=== PATIENT | male | born 1930 | race Caucasian/White ===

== ENCOUNTER 2017-02-02 07:43 | Emergency (ER) | payer MEDICARE, OTHER ==
[~2017-02-02] VITALS: Ht 172.7 cm; Wt 80.0 kg
[~2017-02-02 07:43] MED LIST: ACET-2178 PO; ASPI-1035 PO; DOCU-138 PO; LISI-604 PO; LORA1TAB PO; MEMA10TA11 PO; MULT-1146 PO; QUET25TA PO
[2017-02-02] MEDS ORDERED: SODIUM CHLORIDE 0.9% 500 ML IV ONE (08:15)
[2017-02-02 08:18] LABS: BASOPHILS % 0.3 % (0.0-2.0); EOSINOPHILS % 2.1 % (0.0-5.0); HEMATOCRIT. 37.4 % (42.0-52.0); HEMOGLOBIN. 12.2 g/dL (14.0-18.0); MEAN CORPUSCULAR HEMOGLOBIN 29.9 pg (28.0-32.0); MEAN CORPUSCULAR HGB CONC 32.5 g/dL (31.0-37.0); MEAN PLATELET VOLUME 7.9 fl (7.4-10.4); NEUTROPHILS % 72.6 % (40.0-76.0); PLATELET 277 x1000/uL (130-400); RED BLOOD CELL COUNT 4.07 mill/uL (4.7-6.1); RED CELL DISTRIBUTION WIDTH 13.5 % (11.6-14.6); WHITE BLOOD COUNT 7.4 x1000/uL (4.5-11.0)
[2017-02-02 08:27] LABS: INR 1.1; PARTIAL THROMBOPLASTIN TIME 32.9 sec (24.0-34.0); PROTHROMBIN TIME 11.2 sec
[2017-02-02 08:34] LABS: ALANINE AMINOTRANSFERASE 23 IU/L (13-61); ALBUMIN 2.9 g/dL (3.4-5.0); ANION GAP 10; CALCIUM 8.8 mg/dL (8.5-10.1); CARBON DIOXIDE 27 mEq/L (21-32); CHLORIDE 108 mEq/L (98-107); INDEX HEMOLYSI 1 (1-3); INDEX ICTERIC 1 (1-4); INDEX LIPEMIC 1 (1-3); UREA NITROGEN BLOOD 29 mg/dL (7-21); eGFR 57 mL/min (>60)
[2017-02-02 08:35] LABS: TROPONIN I < 0.02 ng/mL (0.00-0.04)
[2017-02-02 10:28] LABS: CLARITY URINE CLEAR (CLEAR); COLOR URINE YELLOW (YELLOW); GLUCOSE URINE NEGATIVE (NEGATIVE); KETONES URINE NEGATIVE (NEGATIVE); LEUKOCYTE ESTERASE URINE NEGATIVE (NEGATIVE); NITRITE URINE NEGATIVE (NEGATIVE); OCCULT BLOOD URINE NEGATIVE (NEGATIVE); PH URINE 5.5 (4.5-8.0); PROTEIN URINE NEGATIVE (NEGATIVE); SPECIFIC GRAVITY URINE 1.012 (1.005-1.030); UROBILINOGEN URINE 0.2 E.U./dL (0.2-1.0)
[2017-02-02 15:35] VITALS: BP 153/95
== END 2017-02-02 15:51 ==
LOC: ER 08:07
DX: R55 Syncope and collapse (principal); E86.0 Dehydration; F03.90 Unspecified dementia, unspecified severity, without behavioral disturbance, psychotic disturbance, mood disturbance, and anxiety; I13.10 Hypertensive heart and chronic kidney disease without heart failure, with stage 1 through stage 4 chronic kidney disease, or unspecified chronic kidney disease; N18.9 Chronic kidney disease, unspecified; F20.9 Schizophrenia, unspecified; Z79.82 Long term (current) use of aspirin; Z79.1 Long term (current) use of non-steroidal anti-inflammatories (NSAID); Z79.899 Other long term (current) drug therapy; Z95.0 Presence of cardiac pacemaker
CPT/HCPCS: 36415; 71010; 80053; 81003; 82962; 83605; 84484; 85025; 85610; 85730; 87086; 93005; 96360; 99285; J7040

== ENCOUNTER 2017-02-09 09:20 | Observation (INO) | payer MEDICARE, OTHER ==
[~2017-02-09] VITALS: Ht 172.7 cm; Wt 86.6 kg
[2017-02-09] MEDS ORDERED: SODIUM CHLORIDE 0.9% 1,000 ML IV ONE (09:32)
[2017-02-09 10:07] LABS: AMMONIA < 10 uMol/L (<32); INDEX HEMOLYSI 1 (1-3)
[2017-02-09 10:09] LABS: BASOPHILS % 0.6 % (0.0-2.0); EOSINOPHILS % 1.2 % (0.0-5.0); HEMATOCRIT. 35.7 % (42.0-52.0); HEMOGLOBIN. 11.6 g/dL (14.0-18.0); LYMPHOCYTES % 16.5 % (20.0-50.0); MEAN CORPUSCULAR HEMOGLOBIN 29.8 pg (28.0-32.0); MEAN CORPUSCULAR HGB CONC 32.4 g/dL (31.0-37.0); MEAN CORPUSCULAR VOLUME 91.9 fL (80.0-94.0); MEAN PLATELET VOLUME 8.5 fl (7.4-10.4); MONOCYTES % 8.9 % (2.0-8.0); NEUTROPHILS % 72.8 % (40.0-76.0); PLATELET 201 x1000/uL (130-400); RED BLOOD CELL COUNT 3.88 mill/uL (4.7-6.1); RED CELL DISTRIBUTION WIDTH 13.8 % (11.6-14.6); WHITE BLOOD COUNT 6.6 x1000/uL (4.5-11.0)
[2017-02-09 10:11] LABS: ALANINE AMINOTRANSFERASE 23 IU/L (13-61); ALBUMIN 2.8 g/dL (3.4-5.0); ANION GAP 12; CALCIUM 8.7 mg/dL (8.5-10.1); CARBON DIOXIDE 26 mEq/L (21-32); CHLORIDE 109 mEq/L (98-107); ETHANOL BLOOD < 10 mg/dL; INDEX HEMOLYSI 1 (1-3); INDEX ICTERIC 1 (1-4); INDEX LIPEMIC 1 (1-3); TROPONIN I < 0.02 ng/mL (0.00-0.04); UREA NITROGEN BLOOD 29 mg/dL (7-21); eGFR 52 mL/min (>60)
[2017-02-09 10:19] LABS: LACTIC ACID 2.2 mmol/L (0.4-2.0)
[2017-02-09 10:41] LABS: CLARITY URINE CLEAR (CLEAR); COLOR URINE YELLOW (YELLOW); GLUCOSE URINE NEGATIVE (NEGATIVE); KETONES URINE NEGATIVE (NEGATIVE); LEUKOCYTE ESTERASE URINE NEGATIVE (NEGATIVE); NITRITE URINE NEGATIVE (NEGATIVE); OCCULT BLOOD URINE NEGATIVE (NEGATIVE); PH URINE 5.5 (4.5-8.0); PROTEIN URINE NEGATIVE (NEGATIVE); SPECIFIC GRAVITY URINE 1.009 (1.005-1.030); UROBILINOGEN URINE 0.2 E.U./dL (0.2-1.0)
[2017-02-09 11:06] LABS: *AMPHETAMINES SCREEN URINE NEGATIVE (NEGATIVE); *BARBITURATES SCREEN URINE NEGATIVE (NEGATIVE); *BENZODIAZEPINES SCREEN URINE NEGATIVE (NEGATIVE); *COCAINE SCREEN URINE NEGATIVE (NEGATIVE); CANNABINOID URINE SCREEN NEGATIVE (NEGATIVE); ECSTASY MDMA SCREEN URINE NEGATIVE (NEGATIVE); METHADONE URINE SCREEN NEGATIVE (NEGATIVE); OPIATES URINE SCREEN NEGATIVE (NEGATIVE); PHENCYCLIDINE URINE SCREEN NEGATIVE (NEGATIVE)
[2017-02-09 16:00] VITALS: BP_SYST 131; BP_SYST 146; BP_DIAS 82; BP_DIAS 92
[2017-02-09] MEDS ORDERED: PANTOPRAZOLE 40MG DR TABLET PO SCH (18:15)
[2017-02-09 20:00] VITALS: BP 103/69
[2017-02-09] MEDS ORDERED: LEVOFLOXACIN 500MG PREMIX 100 ML IV NR (20:00)
[2017-02-09] MEDS: ASPIRIN 81MG TABLET PO SCH (20:31)
[2017-02-09] MEDS: FUROSEMIDE 40MG/4ML VIAL IVP SCH (20:31)
[2017-02-09] MEDS: NYSTATIN POWDER 15GM TOP SCH (21:54)
[2017-02-10 04:00] VITALS: BP 110/73
[2017-02-10 08:00] VITALS: BP 122/72
[2017-02-10 08:17] LABS: TROPONIN I 0.04 ng/mL (0.00-0.04)
[2017-02-10] MEDS: FUROSEMIDE 40MG/4ML VIAL IVP SCH (08:56)
[2017-02-10] MEDS: ASPIRIN 81MG TABLET PO SCH (08:56)
[2017-02-10] MEDS: ENOXAPARIN 40MG/0.4ML SYR SUBCUT SCH (08:56)
[2017-02-10] MEDS: NYSTATIN POWDER 15GM TOP SCH ×3 (08:56→17:09)
[2017-02-10] MEDS: LEVOTHYROXINE SODIUM 25MCG TABLET PO SCH (09:49)
[2017-02-10 09:58] LABS: BASOPHILS % 0.5 % (0.0-2.0); EOSINOPHILS % 2.2 % (0.0-5.0); HEMATOCRIT. 33.4 % (42.0-52.0); HEMOGLOBIN. 11.2 g/dL (14.0-18.0); LYMPHOCYTES % 15.2 % (20.0-50.0); MEAN CORPUSCULAR HEMOGLOBIN 30.4 pg (28.0-32.0); MEAN CORPUSCULAR HGB CONC 33.5 g/dL (31.0-37.0); MEAN CORPUSCULAR VOLUME 90.9 fL (80.0-94.0); MEAN PLATELET VOLUME 8.9 fl (7.4-10.4); MONOCYTES % 13.6 % (2.0-8.0); NEUTROPHILS % 68.5 % (40.0-76.0); PLATELET 181 x1000/uL (130-400); RED BLOOD CELL COUNT 3.67 mill/uL (4.7-6.1); RED CELL DISTRIBUTION WIDTH 13.7 % (11.6-14.6); WHITE BLOOD COUNT 5.9 x1000/uL (4.5-11.0)
[2017-02-10 10:10] LABS: ALANINE AMINOTRANSFERASE 30 IU/L (13-61); ALBUMIN 2.8 g/dL (3.4-5.0); ANION GAP 13; CALCIUM 8.5 mg/dL (8.5-10.1); CARBON DIOXIDE 25 mEq/L (21-32); CHLORIDE 108 mEq/L (98-107); INDEX HEMOLYSI 1 (1-3); INDEX ICTERIC 1 (1-4); INDEX LIPEMIC 1 (1-3); MAGNESIUM 2.3 mg/dL (1.8-2.4); UREA NITROGEN BLOOD 26 mg/dL (7-21); eGFR > 60 mL/min (>60)
[2017-02-10 12:00] VITALS: BP 105/64
[2017-02-10 16:00] VITALS: BP 112/80
[2017-02-10 20:00] VITALS: BP 116/69
[2017-02-10] MEDS: LEVOFLOXACIN 250MG PREMIX 50 ML IV SCH (21:05)
[2017-02-10] MEDS: FAMOTIDINE 20MG TABLET PO SCH (21:14)
[2017-02-11] VITALS: BP 114/70
[2017-02-11 04:00] VITALS: BP 113/71
[2017-02-11] MEDS: LEVOTHYROXINE SODIUM 25MCG TABLET PO SCH (07:01)
[2017-02-11 08:00] VITALS: BP 110/70
[2017-02-11] MEDS: FUROSEMIDE 40MG/4ML VIAL IVP SCH (08:19)
[2017-02-11] MEDS: FAMOTIDINE 20MG TABLET PO SCH ×2 (08:19→19:56)
[2017-02-11] MEDS: NYSTATIN POWDER 15GM TOP SCH ×3 (08:20→17:00)
[2017-02-11] MEDS: ASPIRIN 81MG TABLET PO SCH (08:20)
[2017-02-11] MEDS: ENOXAPARIN 40MG/0.4ML SYR SUBCUT SCH (08:21)
[2017-02-11 12:00] VITALS: BP 98/68
[2017-02-11 16:00] VITALS: BP 123/77
[2017-02-11] MEDS: LEVOFLOXACIN 250MG PREMIX 50 ML IV SCH (19:57)
[2017-02-11 20:52] VITALS: BP 158/68
[2017-02-12 01:01] VITALS: BP 116/75
[2017-02-12 04:00] VITALS: BP 117/81
[2017-02-12] MEDS: LEVOTHYROXINE SODIUM 25MCG TABLET PO SCH (06:13)
[2017-02-12 08:03] VITALS: BP 111/76
[2017-02-12] MEDS: ASPIRIN 81MG TABLET PO SCH (08:20)
[2017-02-12] MEDS: FAMOTIDINE 20MG TABLET PO SCH (08:20)
[2017-02-12] MEDS: FUROSEMIDE 40MG/4ML VIAL IVP SCH (08:20)
[2017-02-12] MEDS: NYSTATIN POWDER 15GM TOP SCH ×3 (08:20→17:12)
[2017-02-12] MEDS: ENOXAPARIN 40MG/0.4ML SYR SUBCUT SCH (08:21)
[2017-02-12 12:00] VITALS: BP 99/61
== END 2017-02-12 18:30 | disposition home or self-care (01) ==
LOC: ER 09:34 → INTOOBSV 13:44 → 6WST 13:44
PROVIDERS: ADMIT Internal Medicine; ATTEND Internal Medicine
DX: R55 Syncope and collapse (principal); R40.2430 Glasgow coma scale score 3-8, unspecified time; I51.7 Cardiomegaly; I11.9 Hypertensive heart disease without heart failure; F20.9 Schizophrenia, unspecified; F03.90 Unspecified dementia, unspecified severity, without behavioral disturbance, psychotic disturbance, mood disturbance, and anxiety; E86.0 Dehydration; I25.10 Atherosclerotic heart disease of native coronary artery without angina pectoris; D64.9 Anemia, unspecified
CPT/HCPCS: 36415; 71010; 78582; 80053; 80061; 80305; 81003; 82140; 83605; 83735; 84443; 84484; 85025; 93306; 93880; 93970; 96361; 96366; 96372; 96375; 96376; 99285; A9540; A9558; G0378; G0482; J1650; J1940; J1956; J7050; J7030

== ENCOUNTER 2017-05-10 13:46 | Observation (INO) | payer MEDICARE, OTHER ==
[~2017-05-10] VITALS: Ht 172.7 cm; Wt 79.8 kg
[~2017-05-10 13:46] MED LIST changes: -ASPI-1035 PO; +ASPI-1159 PO; -MEMA10TA11 PO; +MEMA10TA2 PO
[2017-05-10] MEDS ORDERED: SODIUM CHLORIDE 0.9% 10ML VIAL ONE (14:47)
[2017-05-10] MEDS ORDERED: IOHEXOL-350 100 ML BOTTLE ONE (14:47)
[2017-05-10 14:48] LABS: BASOPHILS % 0.6 % (0.0-2.0); EOSINOPHILS % 5.4 % (0.0-5.0); HEMATOCRIT. 38.1 % (42.0-52.0); HEMOGLOBIN. 12.5 g/dL (14.0-18.0); LYMPHOCYTES % 24.9 % (20.0-50.0); MEAN CORPUSCULAR HEMOGLOBIN 30.2 pg (28.0-32.0); MEAN CORPUSCULAR VOLUME 92.1 fL (80.0-94.0); MEAN PLATELET VOLUME 8.5 fl (7.4-10.4); MONOCYTES % 13.5 % (2.0-8.0); NEUTROPHILS % 55.6 % (40.0-76.0); PLATELET 184 x1000/uL (130-400); RED BLOOD CELL COUNT 4.14 mill/uL (4.7-6.1)
[2017-05-10 14:56] LABS: CHLORIDE 107 mEq/L (98-107)
[2017-05-10 14:57] LABS: PARTIAL THROMBOPLASTIN TIME 27.9 sec (23.4-31.0); PROTHROMBIN TIME 10.9 sec (9.4-11.6)
[2017-05-10 15:06] LABS: CARBON DIOXIDE 27 mEq/L (21-32); TROPONIN I < 0.02 ng/mL (0.00-0.04)
[2017-05-10 16:59] LABS: CLARITY URINE CLEAR (CLEAR); COLOR URINE YELLOW (YELLOW); GLUCOSE URINE NEGATIVE (NEGATIVE); KETONES URINE NEGATIVE (NEGATIVE); LEUKOCYTE ESTERASE URINE NEGATIVE (NEGATIVE); NITRITE URINE NEGATIVE (NEGATIVE); OCCULT BLOOD URINE NEGATIVE (NEGATIVE); PH URINE 5.5 (4.5-8.0); PROTEIN URINE NEGATIVE (NEGATIVE); UROBILINOGEN URINE 0.2 E.U./dL (0.2-1.0)
[2017-05-10] MEDS ORDERED: LEVOFLOXACIN 750MG PREMIX 150 ML IV SCH (19:15)
[2017-05-10] MEDS ORDERED: PIPERACILLIN/TAZ 3.375G PREMIX 50 ML IV ONE (19:15)
[2017-05-11] VITALS (8 sets, daily range): BP systolic 101–134; BP diastolic 64–76
[2017-05-11] MEDS ORDERED: ACETAMINOPHEN 325MG TABLET PO PRN (03:30)
[2017-05-11] MEDS ORDERED: SODIUM CHLORIDE 0.9% INJ 3ML FLUSH IVF SCH (06:00)
[2017-05-11 06:35] LABS: BASOPHILS % 0.6 % (0.0-2.0); EOSINOPHILS % 5.1 % (0.0-5.0); HEMATOCRIT. 37.8 % (42.0-52.0); HEMOGLOBIN. 12.6 g/dL (14.0-18.0); LYMPHOCYTES % 16.3 % (20.0-50.0); MEAN CORPUSCULAR HEMOGLOBIN 30.6 pg (28.0-32.0); MEAN PLATELET VOLUME 8.9 fl (7.4-10.4); MONOCYTES % 13.6 % (2.0-8.0); NEUTROPHILS % 64.4 % (40.0-76.0); PLATELET 182 x1000/uL (130-400)
[2017-05-11 08:02] LABS: CHLORIDE 107 mEq/L (98-107)
[2017-05-11 08:15] LABS: CARBON DIOXIDE 25 mEq/L (21-32)
[2017-05-11] MEDS: DOCUSATE SODIUM 100MG CAPSULE PO SCH ×2 (08:45→16:10)
[2017-05-11] MEDS ORDERED: ASPIRIN 81MG EC TABLET PO SCH (09:00)
[2017-05-11] MEDS ORDERED: FAMOTIDINE 20MG TABLET PO SCH (09:00)
[2017-05-11] MEDS ORDERED: LISINOPRIL 20MG TABLET PO SCH (09:00)
[2017-05-11] MEDS ORDERED: ENOXAPARIN 40MG/0.4ML SYR SUBCUT SCH (09:00)
[2017-05-11] MEDS ORDERED: LEVOFLOXACIN 500MG PREMIX 100 ML IV SCH (14:00)
== END 2017-05-11 20:38 ==
LOC: ER 14:21 → EDBEDREQ 19:09 → 6EST 19:26 → INTOOBSV 19:26 → EDBEDREQ 19:38 → ENRESERV 21:34
PROVIDERS: ADMIT Internal Medicine; ATTEND Internal Medicine
DX: J18.9 Pneumonia, unspecified organism (principal); I10 Essential (primary) hypertension; G93.40 Encephalopathy, unspecified; F03.90 Unspecified dementia, unspecified severity, without behavioral disturbance, psychotic disturbance, mood disturbance, and anxiety; Y95 Nosocomial condition
CPT/HCPCS: 36415; 71010; 71275; 80048; 80053; 81003; 83690; 84484; 85025; 85610; 85730; 87040; 93005; 96365; 96366; 96367; 96372; 99285; A4216; A6261; C1893; G0378; J1650; J1956; J2543; Q9967

== ENCOUNTER 2017-07-30 07:31 | Inpatient (IN) | payer MEDICARE, OTHER ==
[~2017-07-30] VITALS: Ht 188 cm; Wt 90.7 kg
[2017-07-30] MEDS ORDERED: SODIUM CHLORIDE 0.9% 1,000 ML IV ONE (07:45)
[2017-07-30 08:07] LABS: BASOPHILS % 0.5 % (0.0-2.0); EOSINOPHILS % 4.5 % (0.0-5.0); HEMATOCRIT. 37.3 % (42.0-52.0); HEMOGLOBIN. 12.5 g/dL (14.0-18.0); LYMPHOCYTES % 18.6 % (20.0-50.0); MEAN CORPUSCULAR VOLUME 92.8 fL (80.0-94.0); MEAN PLATELET VOLUME 8.3 fl (7.4-10.4); MONOCYTES % 11.8 % (2.0-8.0); NEUTROPHILS % 64.6 % (40.0-76.0); PLATELET 186 x1000/uL (130-400); RED BLOOD CELL COUNT 4.02 mill/uL (4.7-6.1); RED CELL DISTRIBUTION WIDTH 13.8 % (11.6-14.6)
[2017-07-30 08:16] LABS: INR 1.1; PROTHROMBIN TIME 10.9 sec (9.4-11.6)
[2017-07-30 08:25] LABS: CARBON DIOXIDE 25 mEq/L (21-32); CHLORIDE 107 mEq/L (98-107); ETHANOL BLOOD < 10 mg/dL; TROPONIN I < 0.02 ng/mL (0.00-0.04)
[2017-07-30 10:07] LABS: CLARITY URINE CLEAR (CLEAR); COLOR URINE YELLOW (YELLOW); GLUCOSE URINE NEGATIVE (NEGATIVE); KETONES URINE NEGATIVE (NEGATIVE); LEUKOCYTE ESTERASE URINE NEGATIVE (NEGATIVE); NITRITE URINE NEGATIVE (NEGATIVE); OCCULT BLOOD URINE NEGATIVE (NEGATIVE); PROTEIN URINE NEGATIVE (NEGATIVE); SPECIFIC GRAVITY URINE 1.018 (1.005-1.030); UROBILINOGEN URINE 0.2 E.U./dL (0.2-1.0)
[2017-07-30 10:52] LABS: *AMPHETAMINES SCREEN URINE NEGATIVE (NEGATIVE); *BARBITURATES SCREEN URINE NEGATIVE (NEGATIVE); *BENZODIAZEPINES SCREEN URINE NEGATIVE (NEGATIVE); *COCAINE SCREEN URINE NEGATIVE (NEGATIVE); CANNABINOID URINE SCREEN NEGATIVE (NEGATIVE); METHADONE URINE SCREEN NEGATIVE (NEGATIVE); OPIATES URINE SCREEN NEGATIVE (NEGATIVE); PHENCYCLIDINE URINE SCREEN NEGATIVE (NEGATIVE)
[2017-07-30 11:00] VITALS: BP 133/86
[2017-07-30 11:30] VITALS: BP 133/86
[2017-07-30] MEDS ORDERED: GUAIFENESIN 200MG/10ML SUGAR FREE UDC PO PRN (14:00)
[2017-07-30] MEDS ORDERED: MAGNESIUM/ALUMINUM HYDROXIDE/SIMETHICONE 30ML UDC PO PRN (14:00)
[2017-07-30] MEDS ORDERED: DOCUSATE SODIUM 100MG CAPSULE PO PRN (14:00)
[2017-07-30] MEDS ORDERED: ACETAMINOPHEN 325MG TABLET PO PRN (14:00)
[2017-07-30] MEDS ORDERED: CLONIDINE 0.1MG TABLET PO PRN (14:00)
[2017-07-30] MEDS ORDERED: ONDANSETRON HCL 4MG/2ML VIAL IV PRN (14:00)
[2017-07-30 15:15] VITALS: BP 140/80
[2017-07-30 17:29] LABS: CREATINE KINASE 130 IU/L (39-308); CREATINE KINASE MB FRACTION 3.1 ng/mL (0.5-3.6); TROPONIN I < 0.02 ng/mL (0.00-0.04)
[2017-07-30] MEDS: ENOXAPARIN 40MG/0.4ML SYR SUBCUT SCH (18:12)
[2017-07-30] MEDS: SODIUM CHLORIDE 0.9% 1,000 ML IV SCH (18:13)
[2017-07-30 20:00] VITALS: BP 96/47
[2017-07-30 23:39] LABS: CREATINE KINASE 116 IU/L (39-308); CREATINE KINASE MB FRACTION 2.4 ng/mL (0.5-3.6); TROPONIN I < 0.02 ng/mL (0.00-0.04)
[2017-07-31 00:40] VITALS: BP 98/46
[2017-07-31] MEDS: SODIUM CHLORIDE 0.9% 1,000 ML IV SCH ×2 (03:35→16:55)
[2017-07-31 04:00] VITALS: BP 126/67
[2017-07-31 06:29] LABS: BASOPHILS % 0.5 % (0.0-2.0); EOSINOPHILS % 4.8 % (0.0-5.0); HEMATOCRIT. 35.7 % (42.0-52.0); HEMOGLOBIN. 11.9 g/dL (14.0-18.0); LYMPHOCYTES % 19.4 % (20.0-50.0); MEAN CORPUSCULAR HEMOGLOBIN 30.9 pg (28.0-32.0); MEAN CORPUSCULAR VOLUME 92.7 fL (80.0-94.0); MEAN PLATELET VOLUME 8.4 fl (7.4-10.4); MONOCYTES % 12.6 % (2.0-8.0); NEUTROPHILS % 62.7 % (40.0-76.0); PLATELET 161 x1000/uL (130-400); RED BLOOD CELL COUNT 3.85 mill/uL (4.7-6.1); RED CELL DISTRIBUTION WIDTH 13.6 % (11.6-14.6)
[2017-07-31 07:56] LABS: CARBON DIOXIDE 24 mEq/L (21-32); CHLORIDE 112 mEq/L (98-107); HDL CHOLESTEROL 47 mg/dL (40-59); LDL CHOLESTEROL 73 mg/dL (5-100)
[2017-07-31 08:00] VITALS: BP 123/69
[2017-07-31] MEDS ORDERED: MULTIVITAMINS,THER W-MINERALS TABLET PO SCH (09:00)
[2017-07-31] MEDS ORDERED: ASPIRIN 81MG EC TABLET PO SCH (09:00)
[2017-07-31] MEDS: ENOXAPARIN 40MG/0.4ML SYR SUBCUT SCH (09:46)
[2017-07-31 12:00] VITALS: BP 148/75
[2017-07-31] MEDS ORDERED: MICONAZOLE NITRATE 2% OINT 71GM TOP SCH (12:30)
[2017-07-31 15:30] VITALS: BP 152/78
[2017-07-31 20:05] VITALS: BP 152/78
== END 2017-07-31 20:35 | DRG 69 ==
LOC: ER 07:34 → 6WST 09:09 → EDBEDREQ 09:12 → EDBEDREQSVC 09:12 → ENRESERV 10:26
PROVIDERS: ADMIT Internal Medicine; ATTEND Internal Medicine
DX: G45.9 Transient cerebral ischemic attack, unspecified (principal); N17.9 Acute kidney failure, unspecified; F03.90 Unspecified dementia, unspecified severity, without behavioral disturbance, psychotic disturbance, mood disturbance, and anxiety; I11.9 Hypertensive heart disease without heart failure; I10 Essential (primary) hypertension; H91.90 Unspecified hearing loss, unspecified ear; Z95.0 Presence of cardiac pacemaker; Z79.899 Other long term (current) drug therapy; Z79.82 Long term (current) use of aspirin
CPT/HCPCS: 36415; 70450; 71010; 80053; 80061; 80305; 81003; 82550; 82553; 82962; 83690; 83880; 84484; 85025; 85610; 93005; 93970; 96360; 99285; G0482; J1650; J7030

== ENCOUNTER 2017-09-15 11:46 | Emergency (ER) | payer MEDICARE, OTHER ==
[~2017-09-15] VITALS: Ht 172.7 cm; Wt 75.0 kg
[2017-09-15 14:19] LABS: CARBAMAZEPINE 1.1 ug/mL (4-12); VALPROIC ACID < 3.0 ug/mL (50-100)
[2017-09-15 14:51] LABS: BASOPHILS % 0.3 % (0.0-2.0); EOSINOPHILS % 1.7 % (0.0-5.0); HEMATOCRIT. 38.3 % (42.0-52.0); HEMOGLOBIN. 12.5 g/dL (14.0-18.0); LYMPHOCYTES % 8.1 % (20.0-50.0); MEAN CORPUSCULAR HEMOGLOBIN 30.5 pg (28.0-32.0); MEAN CORPUSCULAR VOLUME 93.8 fL (80.0-94.0); MEAN PLATELET VOLUME 8.5 fl (7.4-10.4); MONOCYTES % 10.6 % (2.0-8.0); NEUTROPHILS % 79.3 % (40.0-76.0); PLATELET 220 x1000/uL (130-400); RED BLOOD CELL COUNT 4.09 mill/uL (4.7-6.1); RED CELL DISTRIBUTION WIDTH 13.6 % (11.6-14.6)
[2017-09-16 02:50] VITALS: BP 109/74
== END 2017-09-16 03:03 | disposition home or self-care (01) ==
LOC: ER 11:48
DX: G40.909 Epilepsy, unspecified, not intractable, without status epilepticus (principal); F03.90 Unspecified dementia, unspecified severity, without behavioral disturbance, psychotic disturbance, mood disturbance, and anxiety; I13.10 Hypertensive heart and chronic kidney disease without heart failure, with stage 1 through stage 4 chronic kidney disease, or unspecified chronic kidney disease; N18.9 Chronic kidney disease, unspecified; Z79.82 Long term (current) use of aspirin
CPT/HCPCS: 36415; 80048; 80156; 80165; 80185; 85025; 99284

== ENCOUNTER 2017-11-07 17:28 | Inpatient (IN) | payer MEDICARE, OTHER ==
[~2017-11-07] VITALS: Ht 167.6 cm; Wt 75.3 kg
[2017-11-07 20:26] LABS: INR 1.1; PROTHROMBIN TIME 11.9 sec (9.4-11.6)
[2017-11-07 20:31] LABS: HEMOGLOBIN. 16.2 g/dL (14.0-18.0); MEAN CORPUSCULAR HEMOGLOBIN 30.3 pg (28.0-32.0); MEAN CORPUSCULAR VOLUME 97.3 fL (80.0-94.0); MEAN PLATELET VOLUME 12.8 fl (7.4-10.4); PLATELET 165 x1000/uL (130-400); RED BLOOD CELL COUNT 5.35 mill/uL (4.7-6.1); RED CELL DISTRIBUTION WIDTH 14.6 % (11.6-14.6)
[2017-11-07 20:36] LABS: CHLORIDE 131 mEq/L (98-107)
[2017-11-07 20:47] LABS: PLATELET ESTIMATE NORMAL
[2017-11-07] MEDS ORDERED: SODIUM CHLORIDE 0.9% 1,000 ML IV ONE (21:00)
[2017-11-07] MEDS ORDERED: PIPERACILLIN/TAZ 3.375G PREMIX 50 ML IV ONE (21:15)
[2017-11-07] MEDS ORDERED: VANCOMYCIN 1 G PREMIX 200 ML IV ONE (21:15)
[2017-11-08] VITALS (45 sets, daily range): BP systolic 67–141; BP diastolic 33–85
[2017-11-08] MEDS ORDERED: LEVOFLOXACIN 500MG PREMIX 100 ML IV SCH ×2 (01:30→03:00)
[2017-11-08] MEDS ORDERED: ACETAMINOPHEN 650MG/20.3ML UDC GT PRN (01:30)
[2017-11-08] MEDS: DEXT 5%/0.45% NACL 1000ML 1,000 ML IV SCH ×2 (02:39→13:53)
[2017-11-08 03:44] LABS: CLARITY URINE CLEAR (CLEAR); COLOR URINE YELLOW (YELLOW); KETONES URINE NEGATIVE (NEGATIVE); LEUKOCYTE ESTERASE URINE NEGATIVE (NEGATIVE); NITRITE URINE NEGATIVE (NEGATIVE); OCCULT BLOOD URINE NEGATIVE (NEGATIVE); PROTEIN URINE NEGATIVE (NEGATIVE); SPECIFIC GRAVITY URINE 1.023 (1.005-1.030); UROBILINOGEN URINE 0.2 E.U./dL (0.2-1.0)
[2017-11-08 05:35] LABS: HEMATOCRIT. 50.8 % (42.0-52.0); HEMOGLOBIN. 15.3 g/dL (14.0-18.0); MEAN CORPUSCULAR VOLUME 99.7 fL (80.0-94.0); MEAN PLATELET VOLUME 12.6 fl (7.4-10.4); PLATELET 144 x1000/uL (130-400)
[2017-11-08 06:14] LABS: CHLORIDE 131 mEq/L (98-107)
[2017-11-08] MEDS: METRONIDAZOLE 500MG TABLET GT SCH ×2 (06:56→15:43)
[2017-11-08] MEDS: PIPERACILLIN/TAZ 2.25G PREMIX 50 ML IV SCH ×3 (06:56→22:00)
[2017-11-08] MEDS: PANTOPRAZOLE SODIUM 40 MG/VIAL IV SCH (09:16)
[2017-11-08] MEDS: ENOXAPARIN 30MG/0.3ML SYR SUBCUT SCH (09:18)
[2017-11-08 10:21] LABS: PLATELET ESTIMATE NORMAL
[2017-11-08] MEDS: BLOOD SUGAR DIAGNOSTIC STRIP TEST SCH ×2 (11:13→21:18)
[2017-11-08] MEDS ORDERED: DEXTROSE 50% WATER 50ML SYRINGE IV PRN (11:30)
[2017-11-08] MEDS: INSULIN LISPRO 100 UNITS/ML SUBCUT SCH ×2 (11:37→21:00)
[2017-11-08] MEDS ORDERED: DEXTROSE 5% WATER 1,000 ML IV SCH (21:15)
[2017-11-09] VITALS: BP 97/52
[2017-11-09] MEDS: LEVOFLOXACIN 250MG PREMIX 50 ML IV SCH (03:00)
[2017-11-09 04:00] VITALS: BP 90/57
[2017-11-09] MEDS: PIPERACILLIN/TAZ 2.25G PREMIX 50 ML IV SCH ×3 (06:00→21:10)
[2017-11-09] MEDS: METRONIDAZOLE 500MG TABLET GT SCH ×3 (06:44→21:10)
[2017-11-09] MEDS: BLOOD SUGAR DIAGNOSTIC STRIP TEST SCH ×4 (06:48→21:09)
[2017-11-09] MEDS: INSULIN LISPRO 100 UNITS/ML SUBCUT SCH ×4 (07:09→21:09)
[2017-11-09 08:00] VITALS: BP 95/59
[2017-11-09] MEDS: PANTOPRAZOLE SODIUM 40 MG/VIAL IV SCH (08:38)
[2017-11-09] MEDS: ENOXAPARIN 30MG/0.3ML SYR SUBCUT SCH (08:38)
[2017-11-09 08:39] LABS: HEMATOCRIT. 47.2 % (42.0-52.0); HEMOGLOBIN. 14.2 g/dL (14.0-18.0); MEAN CORPUSCULAR HEMOGLOBIN 29.8 pg (28.0-32.0); MEAN CORPUSCULAR VOLUME 98.9 fL (80.0-94.0); MEAN PLATELET VOLUME 13.1 fl (7.4-10.4); PLATELET 95 x1000/uL (130-400); RED BLOOD CELL COUNT 4.77 mill/uL (4.7-6.1); RED CELL DISTRIBUTION WIDTH 14.2 % (11.6-14.6)
[2017-11-09 12:00] VITALS: BP 95/70
[2017-11-09 14:10] LABS: PLATELET ESTIMATE DECREASED
[2017-11-09] MEDS ORDERED: DESMOPRESSIN ACETATE 4MCG/ML AMP SUBCUT SCH ×2 (15:27→15:30)
[2017-11-09 16:00] VITALS: BP 103/68
[2017-11-09] MEDS: DESMOPRESSIN ACETATE 4MCG/ML AMP SUBCUT SCH ×2 (16:52→23:56)
[2017-11-09] MEDS: DEXT 5%/0.45% NACL 1000ML 1,000 ML IV SCH ×2 (16:52→23:57)
[2017-11-09 20:00] VITALS: BP 97/59
[2017-11-09] MEDS ORDERED: DESMOPRESSIN ACETATE 0.1MG TABLET PO SCH (21:00)
[2017-11-10] VITALS: BP 86/59
[2017-11-10 04:00] VITALS: BP 101/59
[2017-11-10] MEDS: LEVOFLOXACIN 250MG PREMIX 50 ML IV SCH (04:00)
[2017-11-10] MEDS: METRONIDAZOLE 500MG TABLET GT SCH ×3 (06:33→21:45)
[2017-11-10] MEDS: PIPERACILLIN/TAZ 2.25G PREMIX 50 ML IV SCH ×3 (06:33→21:45)
[2017-11-10] MEDS: BLOOD SUGAR DIAGNOSTIC STRIP TEST SCH ×4 (06:41→21:45)
[2017-11-10 07:07] LABS: BASOPHILS % 0.2 % (0.0-2.0); EOSINOPHILS % 0.8 % (0.0-5.0); HEMATOCRIT. 42.1 % (42.0-52.0); HEMOGLOBIN. 12.8 g/dL (14.0-18.0); LYMPHOCYTES % 7.3 % (20.0-50.0); MEAN CORPUSCULAR HEMOGLOBIN 30.1 pg (28.0-32.0); MEAN CORPUSCULAR VOLUME 98.8 fL (80.0-94.0); MEAN PLATELET VOLUME 13.1 fl (7.4-10.4); MONOCYTES % 5.9 % (2.0-8.0); NEUTROPHILS % 85.8 % (40.0-76.0); PLATELET 77 x1000/uL (130-400); RED BLOOD CELL COUNT 4.26 mill/uL (4.7-6.1); RED CELL DISTRIBUTION WIDTH 14.3 % (11.6-14.6)
[2017-11-10 07:38] LABS: CHLORIDE 138 mEq/L (98-107)
[2017-11-10 08:00] VITALS: BP 96/59
[2017-11-10] MEDS: PANTOPRAZOLE SODIUM 40 MG/VIAL IV SCH (09:25)
[2017-11-10] MEDS: ENOXAPARIN 30MG/0.3ML SYR SUBCUT SCH (09:25)
[2017-11-10] MEDS: DESMOPRESSIN ACETATE 4MCG/ML AMP SUBCUT SCH ×2 (09:25→23:58)
[2017-11-10] MEDS: INSULIN LISPRO 100 UNITS/ML SUBCUT SCH ×4 (09:27→21:00)
[2017-11-10 12:00] VITALS: BP 87/65
[2017-11-10] MEDS: DEXT 5%/0.45% NACL 1000ML 1,000 ML IV SCH (14:45)
[2017-11-10 16:00] VITALS: BP 100/67
[2017-11-10 20:00] VITALS: BP 97/63
[2017-11-10] MEDS ORDERED: TEMAZEPAM 15MG CAPSULE PO PRN (20:45)
[2017-11-11] VITALS: BP 92/54
[2017-11-11 04:00] VITALS: BP 100/51
[2017-11-11] MEDS: LEVOFLOXACIN 250MG PREMIX 50 ML IV SCH (04:10)
[2017-11-11] MEDS: PIPERACILLIN/TAZ 2.25G PREMIX 50 ML IV SCH ×3 (05:24→22:58)
[2017-11-11] MEDS: METRONIDAZOLE 500MG TABLET GT SCH ×3 (06:16→22:58)
[2017-11-11] MEDS: BLOOD SUGAR DIAGNOSTIC STRIP TEST SCH ×4 (06:16→21:00)
[2017-11-11] MEDS: DEXT 5%/0.45% NACL 1000ML 1,000 ML IV SCH ×2 (06:38→15:38)
[2017-11-11 08:00] VITALS: BP 90/56
[2017-11-11] MEDS: INSULIN LISPRO 100 UNITS/ML SUBCUT SCH ×4 (08:10→21:00)
[2017-11-11] MEDS: DESMOPRESSIN ACETATE 4MCG/ML AMP SUBCUT SCH ×2 (08:54→22:57)
[2017-11-11] MEDS: PANTOPRAZOLE SODIUM 40 MG/VIAL IV SCH (08:54)
[2017-11-11 12:00] VITALS: BP 93/62
[2017-11-11 16:00] VITALS: BP 100/53
[2017-11-11 20:00] VITALS: BP 84/47
[2017-11-12] VITALS: BP 101/58
[2017-11-12 04:00] VITALS: BP 100/50
[2017-11-12] MEDS: DEXT 5%/0.45% NACL 1000ML 1,000 ML IV SCH (05:43)
[2017-11-12] MEDS: PIPERACILLIN/TAZ 2.25G PREMIX 50 ML IV SCH ×2 (05:44→14:56)
[2017-11-12] MEDS: METRONIDAZOLE 500MG TABLET GT SCH ×2 (05:44→14:56)
[2017-11-12] MEDS: LEVOFLOXACIN 250MG PREMIX 50 ML IV SCH (05:44)
[2017-11-12] MEDS: BLOOD SUGAR DIAGNOSTIC STRIP TEST SCH ×3 (07:40→17:40)
[2017-11-12 07:48] VITALS: BP 105/56
[2017-11-12] MEDS: INSULIN LISPRO 100 UNITS/ML SUBCUT SCH ×3 (08:10→17:43)
[2017-11-12] MEDS: DESMOPRESSIN ACETATE 4MCG/ML AMP SUBCUT SCH (10:38)
[2017-11-12] MEDS: PANTOPRAZOLE SODIUM 40 MG/VIAL IV SCH (10:38)
[2017-11-12 12:00] VITALS: BP 99/52
[2017-11-12 16:12] VITALS: BP 103/57
[2017-11-12 17:11] VITALS: BP 105/58
== END 2017-11-12 18:40 | DRG 871 ==
LOC: ER 17:53 → MICUNO 21:21 → EDBEDREQ 21:29 → EDBEDREQTM 21:29 → ENRESERV 22:11 → 7WST 11-08 14:09
PROVIDERS: ADMIT Internal Medicine; ATTEND Internal Medicine
DX: A41.9 Sepsis, unspecified organism (principal); G93.40 Encephalopathy, unspecified; N17.9 Acute kidney failure, unspecified; E87.0 Hyperosmolality and hypernatremia; I50.9 Heart failure, unspecified; I11.0 Hypertensive heart disease with heart failure; E11.9 Type 2 diabetes mellitus without complications; D64.9 Anemia, unspecified; F03.90 Unspecified dementia, unspecified severity, without behavioral disturbance, psychotic disturbance, mood disturbance, and anxiety; R62.7 Adult failure to thrive; R19.7 Diarrhea, unspecified; Z66 Do not resuscitate; G40.909 Epilepsy, unspecified, not intractable, without status epilepticus; Z51.5 Encounter for palliative care; Z93.1 Gastrostomy status; Z95.0 Presence of cardiac pacemaker; Z79.899 Other long term (current) drug therapy
CPT/HCPCS: 36415; 71045; 76770; 80048; 82962; 83605; 83880; 84484; 87106; 87493; 93005; 93970; 96365; 96367; 99291; C9113; J1650; J1815; J1956; J2543; J2597; J3370; J3490; J7030; J7060

== ENCOUNTER 2018-03-30 08:05 | Emergency (ER) | payer MEDICARE, OTHER ==
[~2018-03-30] VITALS: Ht 167.6 cm; Wt 76.0 kg
[2018-03-30 09:08] LABS: BASOPHILS % 0.6 % (0.0-2.0); EOSINOPHILS % 5.1 % (0.0-5.0); HEMOGLOBIN. 13.7 g/dL (14.0-18.0); MEAN CORPUSCULAR HEMOGLOBIN 30.7 pg (28.0-32.0); MEAN CORPUSCULAR VOLUME 92.4 fL (80.0-94.0); MEAN PLATELET VOLUME 9.6 fl (7.4-10.4); MONOCYTES % 12.9 % (2.0-8.0); NEUTROPHILS % 51.4 % (40.0-76.0); PLATELET 181 x1000/uL (130-400); RED BLOOD CELL COUNT 4.44 mill/uL (4.7-6.1); RED CELL DISTRIBUTION WIDTH 13.9 % (11.6-14.6)
[2018-03-30 09:14] LABS: CHLORIDE 106 mEq/L (98-107)
[2018-03-30 09:16] LABS: PROTHROMBIN TIME 10.7 sec (9.4-11.6)
[2018-03-30 12:24] LABS: CLARITY URINE CLEAR (CLEAR); COLOR URINE YELLOW (YELLOW); KETONES URINE NEGATIVE (NEGATIVE); LEUKOCYTE ESTERASE URINE TRACE (NEGATIVE); NITRITE URINE NEGATIVE (NEGATIVE); OCCULT BLOOD URINE NEGATIVE (NEGATIVE); PROTEIN URINE NEGATIVE (NEGATIVE); SPECIFIC GRAVITY URINE 1.023 (1.005-1.030)
[2018-03-30 16:07] VITALS: BP 112/78
== END 2018-03-30 16:07 ==
LOC: ER 08:05
DX: R11.10 Vomiting, unspecified (principal); I11.0 Hypertensive heart disease with heart failure; I50.9 Heart failure, unspecified; D64.9 Anemia, unspecified; E11.9 Type 2 diabetes mellitus without complications; K21.9 Gastro-esophageal reflux disease without esophagitis; F03.90 Unspecified dementia, unspecified severity, without behavioral disturbance, psychotic disturbance, mood disturbance, and anxiety; R13.10 Dysphagia, unspecified; F29 Unspecified psychosis not due to a substance or known physiological condition; Z93.1 Gastrostomy status; Z95.0 Presence of cardiac pacemaker; Z79.82 Long term (current) use of aspirin; Z79.899 Other long term (current) drug therapy
CPT/HCPCS: 36415; 80053; 81003; 83690; 85025; 85610; 99284

== ENCOUNTER 2018-04-03 17:59 | Emergency (ER) | payer MEDICARE, OTHER ==
[~2018-04-03] VITALS: Ht 170.2 cm; Wt 56.0 kg
[2018-04-03] MEDS ORDERED: SODIUM CHLORIDE 0.9% 1,000 ML IV ONE (18:55)
[2018-04-03] MEDS ORDERED: ONDANSETRON HCL 4MG/2ML VIAL IV STA (18:55)
[2018-04-03 22:27] LABS: BASOPHILS % 0.8 % (0.0-2.0); EOSINOPHILS % 2.8 % (0.0-5.0); HEMATOCRIT. 42.9 % (42.0-52.0); HEMOGLOBIN. 14.3 g/dL (14.0-18.0); LYMPHOCYTES % 26.1 % (20.0-50.0); MEAN CORPUSCULAR VOLUME 92.6 fL (80.0-94.0); MEAN PLATELET VOLUME 9.8 fl (7.4-10.4); MONOCYTES % 12.7 % (2.0-8.0); NEUTROPHILS % 57.6 % (40.0-76.0); PLATELET 192 x1000/uL (130-400); RED BLOOD CELL COUNT 4.63 mill/uL (4.7-6.1); RED CELL DISTRIBUTION WIDTH 13.7 % (11.6-14.6)
[2018-04-03 22:33] LABS: CHLORIDE 104 mEq/L (98-107)
[2018-04-03 22:56] LABS: CLARITY URINE CLEAR (CLEAR); COLOR URINE DARK YELLOW (YELLOW); KETONES URINE NEGATIVE (NEGATIVE); LEUKOCYTE ESTERASE URINE NEGATIVE (NEGATIVE); NITRITE URINE NEGATIVE (NEGATIVE); OCCULT BLOOD URINE NEGATIVE (NEGATIVE); PH URINE 6.5 (4.5-8.0); PROTEIN URINE NEGATIVE (NEGATIVE); SPECIFIC GRAVITY URINE 1.023 (1.005-1.030)
[2018-04-04 00:47] VITALS: BP 125/89
== END 2018-04-04 00:47 | disposition home or self-care (01) ==
LOC: ER 17:59 → CANBEDREQ 04-04 01:20
DX: R11.10 Vomiting, unspecified (principal); I11.0 Hypertensive heart disease with heart failure; I50.9 Heart failure, unspecified; K21.9 Gastro-esophageal reflux disease without esophagitis; E11.9 Type 2 diabetes mellitus without complications
CPT/HCPCS: 36415; 71045; 80053; 81003; 85025; 93005; 96361; 96374; 99285; J2405; J7030; A4315

== ENCOUNTER 2018-04-28 16:13 | Observation (INO) | payer MEDICARE, OTHER ==
[~2018-04-28] VITALS: Ht 175.3 cm; Wt 79.8 kg
[2018-04-28 17:28] LABS: BASOPHILS % 0.4 % (0.0-2.0); EOSINOPHILS % 1.4 % (0.0-5.0); HEMATOCRIT. 42.1 % (42.0-52.0); HEMOGLOBIN. 13.8 g/dL (14.0-18.0); LYMPHOCYTES % 16.3 % (20.0-50.0); MEAN CORPUSCULAR HEMOGLOBIN 30.9 pg (28.0-32.0); MEAN CORPUSCULAR VOLUME 94.4 fL (80.0-94.0); MEAN PLATELET VOLUME 10.3 fl (7.4-10.4); MONOCYTES % 8.9 % (2.0-8.0); PLATELET 224 x1000/uL (130-400); RED BLOOD CELL COUNT 4.45 mill/uL (4.7-6.1); RED CELL DISTRIBUTION WIDTH 13.7 % (11.6-14.6)
[2018-04-28 17:31] LABS: CHLORIDE 102 mEq/L (98-107)
[2018-04-28 17:33] LABS: PARTIAL THROMBOPLASTIN TIME 27.1 sec (23.4-31.0); PROTHROMBIN TIME 10.7 sec (9.4-11.6)
[2018-04-28] MEDS ORDERED: SODIUM CHLORIDE 0.9% 1,000 ML IV ONE ×2 (18:39)
[2018-04-28 20:10] LABS: CLARITY URINE CLEAR (CLEAR); COLOR URINE YELLOW (YELLOW); KETONES URINE NEGATIVE (NEGATIVE); LEUKOCYTE ESTERASE URINE 1+ (NEGATIVE); NITRITE URINE POSITIVE (NEGATIVE); OCCULT BLOOD URINE NEGATIVE (NEGATIVE); PH URINE 6.5 (4.5-8.0); PROTEIN URINE NEGATIVE (NEGATIVE)
[2018-04-29] VITALS (7 sets, daily range): BP systolic 103–132; BP diastolic 63–96
[2018-04-29] MEDS ORDERED: SODIUM CHLORIDE 0.45% 1,000 ML IV SCH (00:30)
[2018-04-29] MEDS ORDERED: DEXTROSE 50% WATER 50ML SYRINGE IV PRN (00:30)
[2018-04-29] MEDS ORDERED: LORAZEPAM 1MG TABLET GT PRN (01:00)
[2018-04-29] MEDS: BLOOD SUGAR DIAGNOSTIC STRIP TEST SCH ×3 (06:36→17:10)
[2018-04-29 06:39] LABS: BASOPHILS % 0.4 % (0.0-2.0); EOSINOPHILS % 2.2 % (0.0-5.0); HEMATOCRIT. 37.5 % (42.0-52.0); HEMOGLOBIN. 12.8 g/dL (14.0-18.0); LYMPHOCYTES % 20.7 % (20.0-50.0); MEAN CORPUSCULAR HEMOGLOBIN 31.9 pg (28.0-32.0); MEAN CORPUSCULAR VOLUME 93.3 fL (80.0-94.0); MEAN PLATELET VOLUME 10.1 fl (7.4-10.4); MONOCYTES % 12.8 % (2.0-8.0); NEUTROPHILS % 63.9 % (40.0-76.0); PLATELET 194 x1000/uL (130-400); RED BLOOD CELL COUNT 4.01 mill/uL (4.7-6.1); RED CELL DISTRIBUTION WIDTH 13.4 % (11.6-14.6)
[2018-04-29] MEDS ORDERED: PANTOPRAZOLE 40MG DR TABLET PO SCH (07:10)
[2018-04-29] MEDS: INSULIN LISPRO 100 UNITS/ML SUBCUT SCH ×3 (07:40→17:40)
[2018-04-29] MEDS ORDERED: MEMANTINE HCL 10MG TABLET PO SCH (09:00)
[2018-04-29] MEDS ORDERED: ASPIRIN 81MG TABLET GT SCH (09:00)
[2018-04-29] MEDS ORDERED: DOCUSATE SODIUM SUGAR FREE 100MG/10ML UDC GT SCH (09:00)
[2018-04-29] MEDS ORDERED: MULTIVITAMINS,THER W-MINERALS TABLET GT SCH (09:00)
[2018-04-29] MEDS ORDERED: LISINOPRIL 20MG TABLET GT SCH (09:00)
[2018-04-29] MEDS ORDERED: ENOXAPARIN 40MG/0.4ML SYR SUBCUT SCH (09:00)
[2018-04-29 09:27] LABS: CHLORIDE 109 mEq/L (98-107)
[2018-04-29] MEDS ORDERED: QUETIAPINE FUMARATE 25MG TABLET PO SCH (21:00)
== END 2018-04-29 20:20 ==
LOC: EDBEDREQ 18:44 → ER 18:56 → ENRESERV 21:23 → INTOOBSV 23:08 → 8WST 23:08
PROVIDERS: ADMIT Internal Medicine; ATTEND Internal Medicine
DX: R53.1 Weakness (principal); I11.0 Hypertensive heart disease with heart failure; I50.23 Acute on chronic systolic (congestive) heart failure; J44.9 Chronic obstructive pulmonary disease, unspecified; G92 Toxic encephalopathy; E86.0 Dehydration; R13.10 Dysphagia, unspecified; R79.89 Other specified abnormal findings of blood chemistry; D64.9 Anemia, unspecified; E11.9 Type 2 diabetes mellitus without complications; G40.909 Epilepsy, unspecified, not intractable, without status epilepticus; Z87.11 Personal history of peptic ulcer disease; Z95.0 Presence of cardiac pacemaker
CPT/HCPCS: 36415; 70450; 71045; 80048; 80053; 81003; 82962; 83605; 83690; 83735; 83880; 84484; 85025; 85610; 85730; 87040; 87086; 93005; 96360; 96361; 96372; 99285; G0378; J1650; J7030; J7040; A4315

== ENCOUNTER 2018-05-29 16:56 | Emergency (ER) | payer MEDICAID, MEDICARE, OTHER ==
[~2018-05-29] VITALS: Ht 180.3 cm; Wt 69.0 kg
[~2018-05-29 16:56] MED LIST changes: -ACET-2178 PO
[2018-05-29] MEDS ORDERED: SODIUM CHLORIDE 0.9% 1,000 ML IV ONE ×2 (18:45→21:15)
[2018-05-29 19:06] LABS: BASOPHILS % 0.5 % (0.0-2.0); EOSINOPHILS % 2.2 % (0.0-5.0); HEMATOCRIT. 38.9 % (42.0-52.0); HEMOGLOBIN. 12.9 g/dL (14.0-18.0); LYMPHOCYTES % 21.6 % (20.0-50.0); MEAN CORPUSCULAR HEMOGLOBIN 31.3 pg (28.0-32.0); MEAN CORPUSCULAR VOLUME 94.3 fL (80.0-94.0); MEAN PLATELET VOLUME 10.3 fl (7.4-10.4); MONOCYTES % 14.2 % (2.0-8.0); NEUTROPHILS % 61.5 % (40.0-76.0); PLATELET 195 x1000/uL (130-400); RED BLOOD CELL COUNT 4.12 mill/uL (4.7-6.1); RED CELL DISTRIBUTION WIDTH 12.9 % (11.6-14.6)
[2018-05-29 19:08] LABS: CHLORIDE 102 mEq/L (98-107)
[2018-05-29 20:02] LABS: CLARITY URINE CLEAR (CLEAR); COLOR URINE YELLOW (YELLOW); KETONES URINE NEGATIVE (NEGATIVE); LEUKOCYTE ESTERASE URINE 3+ (NEGATIVE); NITRITE URINE POSITIVE (NEGATIVE); OCCULT BLOOD URINE NEGATIVE (NEGATIVE); PROTEIN URINE NEGATIVE (NEGATIVE); SPECIFIC GRAVITY URINE 1.018 (1.005-1.030)
[2018-05-29] MEDS ORDERED: CEFTRIAXONE 1 G PREMIX 50 ML IV ONE (20:15)
[2018-05-30 00:05] VITALS: BP 113/70
== END 2018-05-30 00:08 ==
LOC: ER 16:56 → ENRESERV 23:10 → CANRESERV 23:10 → ER 05-30 00:08 → CANBEDREQ 05-30 02:08
DX: N30.00 Acute cystitis without hematuria (principal); E86.0 Dehydration; I11.0 Hypertensive heart disease with heart failure; I50.9 Heart failure, unspecified; K21.9 Gastro-esophageal reflux disease without esophagitis; E11.9 Type 2 diabetes mellitus without complications; Z95.0 Presence of cardiac pacemaker
CPT/HCPCS: 36415; 71045; 80053; 81003; 82962; 83605; 85025; 87040; 93005; 96361; 96365; 99285; J0696; J7030; Z7610

== ENCOUNTER 2018-09-20 02:40 | Inpatient (IN) | payer MEDICARE, MEDICAID ==
[~2018-09-20] VITALS: Ht 172.7 cm; Wt 68.9 kg
[2018-09-20] MEDS ORDERED: SODIUM CHLORIDE 0.9% 1,000 ML IV ONE (06:15)
[2018-09-20] MEDS ORDERED: ONDANSETRON HCL 4MG/2ML INJ IV STA (06:15)
[2018-09-20 07:03] LABS: BASOPHILS % 0.4 % (0.0-2.0); EOSINOPHILS % 0.6 % (0.0-5.0); HEMATOCRIT. 42.8 % (42.0-52.0); LYMPHOCYTES % 10.9 % (20.0-50.0); MEAN CORPUSCULAR VOLUME 94.6 fL (80.0-94.0); MEAN PLATELET VOLUME 9.1 fl (7.4-10.4); NEUTROPHILS % 80.1 % (40.0-76.0); PLATELET 201 x1000/uL (130-400); RED BLOOD CELL COUNT 4.52 mill/uL (4.7-6.1); RED CELL DISTRIBUTION WIDTH 13.2 % (11.6-14.6)
[2018-09-20 07:08] LABS: CHLORIDE 106 mEq/L (98-107); INR 1.1; PROTHROMBIN TIME 10.7 sec (9.1-11.1)
[2018-09-20 07:54] LABS: CLARITY URINE CLEAR (CLEAR); COLOR URINE YELLOW (YELLOW); KETONES URINE NEGATIVE (NEGATIVE); LEUKOCYTE ESTERASE URINE NEGATIVE (NEGATIVE); NITRITE URINE NEGATIVE (NEGATIVE); OCCULT BLOOD URINE NEGATIVE (NEGATIVE); PROTEIN URINE NEGATIVE (NEGATIVE); SPECIFIC GRAVITY URINE 1.015 (1.005-1.030); UROBILINOGEN URINE 0.2 E.U./dL (0.2-1.0)
[2018-09-20 10:52] VITALS: BP 97/64
[2018-09-20] MEDS ORDERED: ONDA4SOL2 PO (13:52)
[2018-09-20] MEDS ORDERED: LOV40 SQ (13:52)
[2018-09-20] MEDS ORDERED: ACET-2178 PO (13:52)
[2018-09-20] MEDS ORDERED: IPRATROPIUM/ALBUTEROL 0.5-3(2.5)MG/3ML NEB INH PRN (14:15)
[2018-09-20] MEDS ORDERED: DOCUSATE SODIUM 100MG CAPSULE PO PRN (14:15)
[2018-09-20] MEDS ORDERED: MAGNESIUM/ALUMINUM HYDROXIDE/SIMETHICONE 30ML UDC PO PRN (14:15)
[2018-09-20] MEDS ORDERED: ACETAMINOPHEN 325MG TABLET PO PRN (14:15)
[2018-09-20] MEDS ORDERED: NA PHOS,M-B/NA PHOS,DI-BA ENEMA 118ML PR PRN (14:15)
[2018-09-20] MEDS ORDERED: ONDANSETRON HCL 4MG/2ML INJ IV PRN (14:15)
[2018-09-20] MEDS ORDERED: CLONIDINE 0.1MG TABLET PO PRN (14:15)
[2018-09-20 16:00] VITALS: BP 101/66
[2018-09-20] MEDS ORDERED: LEVOFLOXACIN 500MG PREMIX 100 ML IV NR (16:00)
[2018-09-20] MEDS ORDERED: DEXTROSE 50% WATER 50ML SYRINGE IV PRN (16:00)
[2018-09-20] MEDS: SUCRALFATE 1 G/10 ML UDC PO SCH ×2 (16:27→21:14)
[2018-09-20] MEDS: ENOXAPARIN 40MG/0.4ML SYR SUBCUT SCH (16:28)
[2018-09-20] MEDS: SODIUM CHLORIDE 0.9% 1,000 ML IV SCH (16:31)
[2018-09-20] MEDS: BLOOD SUGAR DIAGNOSTIC STRIP TEST SCH ×2 (16:33→20:53)
[2018-09-20] MEDS: INSULIN LISPRO 100 UNITS/ML SUBCUT SCH ×2 (16:33→20:53)
[2018-09-20 17:00] VITALS: BP 97/64
[2018-09-20 20:02] VITALS: BP 96/63
[2018-09-20] MEDS: ASCORBIC ACID 500 MG TABLET PO SCH (21:15)
[2018-09-21 00:47] VITALS: BP 112/68
[2018-09-21] MEDS: SODIUM CHLORIDE 0.9% 1,000 ML IV SCH ×2 (03:20→18:20)
[2018-09-21 04:07] LABS: CLARITY URINE CLEAR (CLEAR); COLOR URINE DARK YELLOW (YELLOW); KETONES URINE TRACE (NEGATIVE); LEUKOCYTE ESTERASE URINE 1+ (NEGATIVE); NITRITE URINE NEGATIVE (NEGATIVE); OCCULT BLOOD URINE NEGATIVE (NEGATIVE); PROTEIN URINE NEGATIVE (NEGATIVE); SPECIFIC GRAVITY URINE 1.029 (1.005-1.030)
[2018-09-21 04:15] VITALS: BP 113/51
[2018-09-21] MEDS: BLOOD SUGAR DIAGNOSTIC STRIP TEST SCH ×4 (06:09→20:48)
[2018-09-21] MEDS: SUCRALFATE 1 G/10 ML UDC PO SCH ×4 (06:12→21:20)
[2018-09-21] MEDS: INSULIN LISPRO 100 UNITS/ML SUBCUT SCH ×4 (07:50→20:48)
[2018-09-21 08:00] VITALS: BP 115/70
[2018-09-21] MEDS: ASCORBIC ACID 500 MG TABLET PO SCH ×2 (09:11→21:20)
[2018-09-21] MEDS: PANTOPRAZOLE SODIUM 40 MG/VIAL IV SCH (09:11)
[2018-09-21] MEDS: ENOXAPARIN 40MG/0.4ML SYR SUBCUT SCH (09:12)
[2018-09-21] MEDS: ZINC SULFATE 220 MG ( 50 ) CAPSULE PO SCH (09:12)
[2018-09-21 12:00] VITALS: BP 105/59
[2018-09-21] MEDS: LEVOFLOXACIN 250MG PREMIX 50 ML IV SCH (13:24)
[2018-09-21 16:00] VITALS: BP 91/57
[2018-09-21] MEDS ORDERED: LEVOFLOXACIN 250MG PREMIX 50 ML IV SCH (16:00)
[2018-09-21 20:21] VITALS: BP 92/57
[2018-09-22] VITALS: BP 98/54
[2018-09-22 04:00] VITALS: BP 96/56
[2018-09-22] MEDS: SODIUM CHLORIDE 0.9% 1,000 ML IV SCH ×2 (06:19→20:01)
[2018-09-22] MEDS: BLOOD SUGAR DIAGNOSTIC STRIP TEST SCH ×4 (06:19→20:56)
[2018-09-22] MEDS: SUCRALFATE 1 G/10 ML UDC PO SCH ×4 (06:19→20:55)
[2018-09-22] MEDS: INSULIN LISPRO 100 UNITS/ML SUBCUT SCH ×4 (07:26→20:56)
[2018-09-22 08:00] VITALS: BP 91/53
[2018-09-22] MEDS: PANTOPRAZOLE SODIUM 40 MG/VIAL IV SCH (08:46)
[2018-09-22] MEDS: ASCORBIC ACID 500 MG TABLET PO SCH ×2 (08:46→20:55)
[2018-09-22] MEDS: ENOXAPARIN 40MG/0.4ML SYR SUBCUT SCH (08:47)
[2018-09-22] MEDS: ZINC SULFATE 220 MG ( 50 ) CAPSULE PO SCH (08:47)
[2018-09-22 12:00] VITALS: BP 94/59
[2018-09-22] MEDS: LEVOFLOXACIN 250MG PREMIX 50 ML IV SCH (14:00)
[2018-09-22 16:00] VITALS: BP 130/76
[2018-09-22 20:00] VITALS: BP 114/68
[2018-09-23] VITALS: BP 112/73
[2018-09-23 04:00] VITALS: BP 117/68
[2018-09-23] MEDS: SUCRALFATE 1 G/10 ML UDC PO SCH ×4 (06:22→20:34)
[2018-09-23] MEDS: BLOOD SUGAR DIAGNOSTIC STRIP TEST SCH ×4 (06:22→20:34)
[2018-09-23] MEDS: INSULIN LISPRO 100 UNITS/ML SUBCUT SCH ×4 (07:39→20:34)
[2018-09-23] MEDS: ASCORBIC ACID 500 MG TABLET PO SCH ×2 (08:24→20:34)
[2018-09-23] MEDS: PANTOPRAZOLE SODIUM 40 MG/VIAL IV SCH (08:24)
[2018-09-23] MEDS: SODIUM CHLORIDE 0.9% 1,000 ML IV SCH ×2 (08:24→22:01)
[2018-09-23] MEDS: ZINC SULFATE 220 MG ( 50 ) CAPSULE PO SCH (08:25)
[2018-09-23] MEDS: ENOXAPARIN 40MG/0.4ML SYR SUBCUT SCH (08:25)
[2018-09-23 09:12] VITALS: BP 104/63
[2018-09-23 12:46] VITALS: BP 112/70
[2018-09-23] MEDS: LEVOFLOXACIN 250MG PREMIX 50 ML IV SCH (13:50)
[2018-09-23 16:44] VITALS: BP 115/75
[2018-09-23 20:00] VITALS: BP 108/68
[2018-09-24] VITALS: BP 97/53
[2018-09-24 04:00] VITALS: BP 126/67
[2018-09-24] MEDS: BLOOD SUGAR DIAGNOSTIC STRIP TEST SCH ×2 (06:16→12:20)
[2018-09-24] MEDS: SUCRALFATE 1 G/10 ML UDC PO SCH ×2 (06:16→12:56)
[2018-09-24] MEDS: INSULIN LISPRO 100 UNITS/ML SUBCUT SCH ×2 (07:50→12:34)
[2018-09-24 08:00] VITALS: BP 104/65
[2018-09-24] MEDS: ENOXAPARIN 40MG/0.4ML SYR SUBCUT SCH (09:19)
[2018-09-24] MEDS: ZINC SULFATE 220 MG ( 50 ) CAPSULE PO SCH (09:19)
[2018-09-24] MEDS: ASCORBIC ACID 500 MG TABLET PO SCH (09:19)
[2018-09-24] MEDS: PANTOPRAZOLE SODIUM 40 MG/VIAL IV SCH (09:19)
[2018-09-24 12:18] VITALS: BP 104/65
[2018-09-24 12:50] VITALS: BP_SYST 119; BP_SYST 120; BP_DIAS 66; BP_DIAS 72
[2018-09-24] MEDS: LEVOFLOXACIN 250MG PREMIX 50 ML IV SCH (12:56)
== END 2018-09-24 14:16 | DRG 391 ==
LOC: ER 02:40 → 6WST 08:02 → EDBEDREQTM 08:10 → EDBEDREQ 08:10 → ENRESERV 09:38
PROVIDERS: ADMIT Internal Medicine; ATTEND Internal Medicine
DX: K21.9 Gastro-esophageal reflux disease without esophagitis (principal); G92 Toxic encephalopathy; E44.1 Mild protein-calorie malnutrition; E86.0 Dehydration; E11.9 Type 2 diabetes mellitus without complications; Z79.4 Long term (current) use of insulin; F03.90 Unspecified dementia, unspecified severity, without behavioral disturbance, psychotic disturbance, mood disturbance, and anxiety; I11.0 Hypertensive heart disease with heart failure; I50.9 Heart failure, unspecified; Z68.23 Body mass index [BMI] 23.0-23.9, adult; Z95.0 Presence of cardiac pacemaker; Z93.1 Gastrostomy status
CPT/HCPCS: 36415; 74176; 80061; 82962; 83036; 83605; 92610; 93005; 96365; 96375; 97162; 97166; 99285; C1893; C9113; J1650; J1956; J2405; J7030; A4315

== ENCOUNTER 2018-11-26 11:45 | Inpatient (IN) | payer MEDICARE, MEDICAID ==
[~2018-11-26] VITALS: Ht 172.7 cm; Wt 68.9 kg
[~2018-11-26 11:45] MED LIST changes: +ACET-2178 PO; -ASPI-1159 PO; -DOCU-138 PO; -LISI-604 PO; -LORA1TAB PO; +LOV40 SQ; -MULT-1146 PO; +ONDA4SOL2 PO; -QUET25TA PO
[2018-11-26 12:00] VITALS: BP 134/74
[2018-11-26] MEDS ORDERED: ASCO-339 GT (13:12)
[2018-11-26] MEDS ORDERED: ZINC220T GT (13:12)
[2018-11-26] MEDS ORDERED: IPRA3AMP9 HHN (13:12)
[2018-11-26] MEDS ORDERED: SUCR1TAB30 PO (13:12)
[2018-11-26] MEDS ORDERED: MULT-230 PO (13:12)
[2018-11-26] MEDS ORDERED: PROT40 GT (13:12)
[2018-11-26] MEDS ORDERED: CLONIDINE 0.1MG TABLET PO PRN (13:30)
[2018-11-26] MEDS ORDERED: ACETAMINOPHEN 325MG TABLET PO PRN (13:30)
[2018-11-26] MEDS ORDERED: IPRATROPIUM/ALBUTEROL 0.5-3(2.5)MG/3ML NEB HHN PRN (13:30)
[2018-11-26 14:15] VITALS: BP 134/74
[2018-11-26 15:04] LABS: BASOPHILS % 1.3 % (0.0-2.0); EOSINOPHILS % 1.5 % (0.0-5.0); HEMATOCRIT. 37.4 % (42.0-52.0); HEMOGLOBIN. 12.4 g/dL (14.0-18.0); LYMPHOCYTES % 11.3 % (20.0-50.0); MEAN CORPUSCULAR HEMOGLOBIN 30.5 pg (28.0-32.0); MEAN CORPUSCULAR VOLUME 92.1 fL (80.0-94.0); MEAN PLATELET VOLUME 8.3 fl (7.4-10.4); MONOCYTES % 6.4 % (2.0-8.0); NEUTROPHILS % 79.5 % (40.0-76.0); PLATELET 359 x1000/uL (130-400); RED BLOOD CELL COUNT 4.06 mill/uL (4.7-6.1)
[2018-11-26 15:21] LABS: CHLORIDE 105 mEq/L (98-107)
[2018-11-26 16:00] VITALS: BP 102/72
[2018-11-26] MEDS ORDERED: DEXTROSE 50% WATER 50ML SYRINGE IV PRN (17:15)
[2018-11-26] MEDS: SUCRALFATE 1 G/10 ML UDC PO SCH ×2 (17:20→22:19)
[2018-11-26] MEDS: BLOOD SUGAR DIAGNOSTIC STRIP TEST SCH ×3 (17:20→21:00)
[2018-11-26 17:42] LABS: CLARITY URINE TURBID (CLEAR); COLOR URINE YELLOW (YELLOW); KETONES URINE NEGATIVE (NEGATIVE); LEUKOCYTE ESTERASE URINE 3+ (NEGATIVE); NITRITE URINE NEGATIVE (NEGATIVE); OCCULT BLOOD URINE 2+ (NEGATIVE); PH URINE >=9.0 (4.5-8.0); PROTEIN URINE 2+ (NEGATIVE); SPECIFIC GRAVITY URINE 1.014 (1.005-1.030); UROBILINOGEN URINE 0.2 E.U./dL (0.2-1.0)
[2018-11-26] MEDS: INSULIN LISPRO 100 UNITS/ML SUBCUT SCH ×3 (17:50→21:00)
[2018-11-26 20:00] VITALS: BP 124/78
[2018-11-26] MEDS: ASCORBIC ACID 500 MG TABLET PO SCH (22:19)
[2018-11-27] VITALS: BP 106/82
[2018-11-27 04:00] VITALS: BP 108/54
[2018-11-27] MEDS: SUCRALFATE 1 G/10 ML UDC PO SCH ×4 (07:20→21:58)
[2018-11-27] MEDS: PANTOPRAZOLE 40MG DR TABLET PO SCH ×2 (07:20→13:18)
[2018-11-27 08:00] VITALS: BP 130/73
[2018-11-27] MEDS ORDERED: MEMANTINE HCL 10MG TABLET GT SCH (09:00)
[2018-11-27] MEDS: ZINC SULFATE 220 MG ( 50 ) CAPSULE GT SCH ×2 (09:00→13:18)
[2018-11-27] MEDS ORDERED: PANTOPRAZOLE SODIUM 40 MG/VIAL IV SCH (09:00)
[2018-11-27] MEDS: MEMANTINE HCL 10MG TABLET PO SCH ×2 (09:00→13:19)
[2018-11-27] MEDS: MULTIVITAMINS,THER W-MINERALS TABLET PO SCH ×2 (09:00→13:18)
[2018-11-27] MEDS: ASCORBIC ACID 500 MG TABLET PO SCH ×3 (09:00→21:58)
[2018-11-27 12:00] VITALS: BP 115/82
[2018-11-27] MEDS ORDERED: CEFTRIAXONE 1,000 MG in DEXTROSE 5% WATER 50 ML IV ONE (12:00)
[2018-11-27] MEDS: BLOOD SUGAR DIAGNOSTIC STRIP TEST SCH ×3 (12:28→21:58)
[2018-11-27] MEDS: INSULIN LISPRO 100 UNITS/ML SUBCUT SCH ×4 (12:30→21:00)
[2018-11-27 16:00] VITALS: BP 130/73
[2018-11-27 20:00] VITALS: BP 116/69
[2018-11-28] VITALS: BP 99/69
[2018-11-28 04:00] VITALS: BP 118/73
[2018-11-28] MEDS: PANTOPRAZOLE 40MG DR TABLET PO SCH ×2 (07:08→09:00)
[2018-11-28] MEDS: SUCRALFATE 1 G/10 ML UDC PO SCH ×5 (07:08→22:22)
[2018-11-28] MEDS: BLOOD SUGAR DIAGNOSTIC STRIP TEST SCH ×4 (07:08→22:54)
[2018-11-28] MEDS: INSULIN LISPRO 100 UNITS/ML SUBCUT SCH ×4 (07:50→21:00)
[2018-11-28 08:00] VITALS: BP 117/79
[2018-11-28] MEDS: ASCORBIC ACID 500 MG TABLET PO SCH ×2 (09:00→22:22)
[2018-11-28] MEDS: MULTIVITAMINS,THER W-MINERALS TABLET PO SCH (09:00)
[2018-11-28] MEDS: MEMANTINE HCL 10MG TABLET PO SCH (09:01)
[2018-11-28] MEDS: ZINC SULFATE 220 MG ( 50 ) CAPSULE GT SCH (09:01)
[2018-11-28 12:00] VITALS: BP 104/72
[2018-11-28 16:00] VITALS: BP 113/78
[2018-11-28 18:29] LABS: BASOPHILS % 0.7 % (0.0-2.0); EOSINOPHILS % 5.3 % (0.0-5.0); LYMPHOCYTES % 20.8 % (20.0-50.0); MEAN CORPUSCULAR HEMOGLOBIN 30.2 pg (28.0-32.0); MEAN PLATELET VOLUME 8.5 fl (7.4-10.4); MONOCYTES % 11.3 % (2.0-8.0); NEUTROPHILS % 61.9 % (40.0-76.0); PLATELET 313 x1000/uL (130-400); RED BLOOD CELL COUNT 3.98 mill/uL (4.7-6.1); RED CELL DISTRIBUTION WIDTH 14.1 % (11.6-14.6)
[2018-11-28 18:36] LABS: CHLORIDE 110 mEq/L (98-107)
[2018-11-28 20:00] VITALS: BP 148/71
[2018-11-29] VITALS: BP 148/71
[2018-11-29 04:00] VITALS: BP_SYST 130; BP_SYST 136; BP_DIAS 62; BP_DIAS 63
[2018-11-29] MEDS: SUCRALFATE 1 G/10 ML UDC PO SCH (07:10)
[2018-11-29] MEDS: BLOOD SUGAR DIAGNOSTIC STRIP TEST SCH (07:17)
[2018-11-29] MEDS: INSULIN LISPRO 100 UNITS/ML SUBCUT SCH (07:50)
[2018-11-29 08:00] VITALS: BP 127/64
[2018-11-29] MEDS: MULTIVITAMINS,THER W-MINERALS TABLET PO SCH (08:38)
[2018-11-29] MEDS: ZINC SULFATE 220 MG ( 50 ) CAPSULE GT SCH (08:38)
[2018-11-29] MEDS: MEMANTINE HCL 10MG TABLET PO SCH (08:38)
[2018-11-29] MEDS: ASCORBIC ACID 500 MG TABLET PO SCH (08:38)
[2018-11-29] MEDS ORDERED: LEVO500T2 PO ×2 (09:29→09:30)
[2018-11-29 09:34] VITALS: BP 123/69
[2018-11-29] MEDS ORDERED: CEFTRIAXONE 1,000 MG in DEXTROSE 5% WATER 50 ML IV SCH (11:00)
== END 2018-11-29 11:30 | DRG 699 ==
LOC: 6EST 11:45
PROVIDERS: ADMIT Hospitalist; ATTEND Hospitalist
DX: T83.83XA Hemorrhage due to genitourinary prosthetic devices, implants and grafts, initial encounter (principal); N39.0 Urinary tract infection, site not specified; S37.898A Other injury of other urinary and pelvic organ, initial encounter; R31.9 Hematuria, unspecified; I50.9 Heart failure, unspecified; I11.0 Hypertensive heart disease with heart failure; E11.9 Type 2 diabetes mellitus without complications; F03.90 Unspecified dementia, unspecified severity, without behavioral disturbance, psychotic disturbance, mood disturbance, and anxiety; Y65.8 Other specified misadventures during surgical and medical care; B96.4 Proteus (mirabilis) (morganii) as the cause of diseases classified elsewhere; K21.9 Gastro-esophageal reflux disease without esophagitis; Z93.1 Gastrostomy status; Z95.0 Presence of cardiac pacemaker; Y92.89 Other specified places as the place of occurrence of the external cause; E16.2 Hypoglycemia, unspecified
CPT/HCPCS: 36415; 80048; 82962; 83735; 87186; J0696; J1815; J7042; J7060

== ENCOUNTER 2019-02-15 02:16 | Inpatient (IN) | payer MEDICARE, MEDICAID ==
[~2019-02-15] VITALS: Ht 167.6 cm; Wt 68.5 kg
[~2019-02-15 02:16] MED LIST changes: +ASCO-339 GT; +IPRA3AMP9 HHN; +MULT-230 PO; +PROT40 GT; +SUCR1TAB30 PO; +ZINC220T GT
[2019-02-15 05:29] LABS: BASOPHILS % 0.7 % (0.0-2.0); HEMATOCRIT. 35.2 % (42.0-52.0); HEMOGLOBIN. 11.6 g/dL (14.0-18.0); LYMPHOCYTES % 20.4 % (20.0-50.0); MEAN CORPUSCULAR HEMOGLOBIN 30.3 pg (28.0-32.0); MEAN PLATELET VOLUME 8.2 fl (7.4-10.4); MONOCYTES % 13.1 % (2.0-8.0); NEUTROPHILS % 60.8 % (40.0-76.0); PLATELET 189 x1000/uL (130-400); RED BLOOD CELL COUNT 3.82 mill/uL (4.7-6.1); RED CELL DISTRIBUTION WIDTH 14.3 % (11.6-14.6)
[2019-02-15 05:34] LABS: CHLORIDE 107 mEq/L (98-107)
[2019-02-15] MEDS ORDERED: DIATR MEGLU/DIATRIZOATE SOLN 30ML ONE (05:39)
[2019-02-15] MEDS ORDERED: DEXTROSE 50% WATER 50ML SYRINGE IV ONE (08:32)
[2019-02-15 09:00] VITALS: BP 117/66
[2019-02-15] MEDS ORDERED: ONDANSETRON HCL 4MG/2ML INJ IV PRN (09:15)
[2019-02-15] MEDS: DEXT 5%/0.45% NACL 1000ML 1,000 ML IV SCH (09:15)
[2019-02-15] MEDS ORDERED: LORAZEPAM 2MG/ML CPJ IV PRN (09:15)
[2019-02-15 12:00] VITALS: BP 125/80
[2019-02-15] MEDS: ENOXAPARIN 40MG/0.4ML SYR SUBCUT SCH (12:49)
[2019-02-15 16:00] VITALS: BP 113/69
[2019-02-15 16:17] LABS: CLARITY URINE CLOUDY (CLEAR); COLOR URINE YELLOW (YELLOW); KETONES URINE NEGATIVE (NEGATIVE); LEUKOCYTE ESTERASE URINE 3+ (NEGATIVE); NITRITE URINE POSITIVE (NEGATIVE); OCCULT BLOOD URINE TRACE (NEGATIVE); PH URINE 5.5 (4.5-8.0); PROTEIN URINE NEGATIVE (NEGATIVE); UROBILINOGEN URINE 0.2 E.U./dL (0.2-1.0)
[2019-02-15] MEDS ORDERED: LORAZEPAM 1MG TABLET PO PRN (18:15)
[2019-02-15] MEDS ORDERED: DEXTROSE 50% WATER 50ML SYRINGE IV PRN (18:15)
[2019-02-15] MEDS: HYDROCORTISONE 1% OINT 28.35GM TOP SCH ×2 (18:28→21:46)
[2019-02-15 20:00] VITALS: BP 141/78
[2019-02-15] MEDS: INSULIN LISPRO 100 UNITS/ML SUBCUT SCH (21:00)
[2019-02-15] MEDS: BLOOD SUGAR DIAGNOSTIC STRIP TEST SCH (21:45)
[2019-02-16] VITALS: BP 132/73
[2019-02-16 04:00] VITALS: BP 121/67
[2019-02-16] MEDS: BLOOD SUGAR DIAGNOSTIC STRIP TEST SCH ×2 (05:55→12:20)
[2019-02-16] MEDS: HYDROCORTISONE 1% OINT 28.35GM TOP SCH (05:56)
[2019-02-16 06:37] LABS: BASOPHILS % 0.5 % (0.0-2.0); EOSINOPHILS % 4.4 % (0.0-5.0); HEMATOCRIT. 34.5 % (42.0-52.0); HEMOGLOBIN. 11.5 g/dL (14.0-18.0); LYMPHOCYTES % 18.1 % (20.0-50.0); MEAN CORPUSCULAR HEMOGLOBIN 30.7 pg (28.0-32.0); MEAN CORPUSCULAR VOLUME 92.4 fL (80.0-94.0); MEAN PLATELET VOLUME 8.6 fl (7.4-10.4); MONOCYTES % 13.6 % (2.0-8.0); NEUTROPHILS % 63.4 % (40.0-76.0); PLATELET 177 x1000/uL (130-400); RED BLOOD CELL COUNT 3.73 mill/uL (4.7-6.1); RED CELL DISTRIBUTION WIDTH 13.9 % (11.6-14.6)
[2019-02-16] MEDS: DEXT 5%/0.45% NACL 1000ML 1,000 ML IV SCH (06:43)
[2019-02-16] MEDS: INSULIN LISPRO 100 UNITS/ML SUBCUT SCH ×2 (06:45→12:50)
[2019-02-16 07:12] LABS: CHLORIDE 107 mEq/L (98-107)
[2019-02-16] MEDS: ENOXAPARIN 40MG/0.4ML SYR SUBCUT SCH (08:38)
[2019-02-16] MEDS ORDERED: LANSOPRAZOLE 15MG DR CAPSULE PO SCH (12:00)
[2019-02-16 14:10] VITALS: BP 116/70
== END 2019-02-16 14:42 | DRG 395 ==
LOC: ER 02:16 → 6EST 06:40 → ENRESERV 07:44 → EDBEDREQ 08:28 → SUPCPDRO 09:07
PROVIDERS: ADMIT Hospitalist; ATTEND Hospitalist
DX: K94.23 Gastrostomy malfunction (principal); I50.9 Heart failure, unspecified; I11.0 Hypertensive heart disease with heart failure; I25.10 Atherosclerotic heart disease of native coronary artery without angina pectoris; E11.9 Type 2 diabetes mellitus without complications; F03.90 Unspecified dementia, unspecified severity, without behavioral disturbance, psychotic disturbance, mood disturbance, and anxiety; G40.909 Epilepsy, unspecified, not intractable, without status epilepticus; Y83.3 Surgical operation with formation of external stoma as the cause of abnormal reaction of the patient, or of later complication, without mention of misadventure at the time of the procedure; Z95.0 Presence of cardiac pacemaker; Z79.899 Other long term (current) drug therapy; Y92.89 Other specified places as the place of occurrence of the external cause; K21.9 Gastro-esophageal reflux disease without esophagitis
CPT/HCPCS: 36415; 71045; 82962; 84134; 87077; 87186; 93005; 96374; 99285; J1650; J2060; Q9963; A4315